=== PATIENT | female | born 1985 | race Caucasian/White ===

== ENCOUNTER 2018-01-12 19:59 | Outpatient (CLI) | payer OTHER, MEDICAID | END 2018-01-12 22:47 | disposition home or self-care (01) | LOC: OBT 19:59 → L-D 20:03 → OBT 22:47 | DX: O26.893 Other specified pregnancy related conditions, third trimester (principal); Z3A.32 32 weeks gestation of pregnancy; M79.604 Pain in right leg | CPT/HCPCS: 76817; 93970 ==

== ENCOUNTER 2018-03-01 01:50 | Inpatient (IN) | payer OTHER, MEDICAID ==
[2018-03-01] MEDS ORDERED: BUTORPHANOL 1 MG INJ IV (03:00)
[2018-03-01] MEDS ORDERED: LIDOCAINE 1% (MPF) 30 ML INJ INJ (03:00)
[2018-03-01] MEDS ORDERED: CARBOPROST 250 MCG INJ IM ×2 (03:00→11:30)
[2018-03-01] MEDS ORDERED: METHYLERGONOVINE 0.2 MG INJ IM ×2 (03:00→11:30)
[2018-03-01] MEDS ORDERED: MISOPROSTOL 200 MCG TAB PR ×2 (03:00→11:30)
[2018-03-01] MEDS ORDERED: OXYTOCIN 30 UNITS/LR 500 ML IV ×2 (03:00→11:30)
[2018-03-01] MEDS ORDERED: IBUPROFEN 600 MG TAB PO (03:00)
[2018-03-01] MEDS: LACTATED RINGER'S 1,000 ML IV* ×4 (03:25→19:08)
[2018-03-01 03:42] LABS: ADD MAN DIFF? NO
[2018-03-01 04:04] LABS: ABNORMAL IP MESSAGE 1; BASOPHILS % 0.4 % (0.0-2.0); EOSINOPHILS # 0.1 10^3/ul (0.0-0.5); EOSINOPHILS % 0.5 % (0.0-7.0); HEMATOCRIT 39.2 % (37.0-47.0); LYMPHOCYTES # 2.2 10^3/ul (0.8-2.9); LYMPHOCYTES % 20.2 % (15.0-51.0); MEAN CORPUSCULAR HEMOGLOBIN 29.3 pg (29.0-33.0); MEAN CORPUSCULAR HGB CONC 33.2 g/dl (32.0-37.0); MEAN CORPUSCULAR VOLUME 88.5 fl (82.0-101.0); MEAN PLATELET VOLUME 13.5 fl (7.4-10.4); MONOCYTE # 0.9 10^3/ul (0.3-0.9); MONOCYTES % 8.5 % (0.0-11.0); NEUTROPHIL # 7.4 10^3/ul (1.6-7.5); NEUTROPHILS % 69.6 % (39.0-77.0); PLATELET COUNT 107 10^3/UL (140-415); RED BLOOD COUNT 4.43 10^6/ul (4.20-5.40); RED CELL DISTRIBUTION WIDTH 14.6 % (11.5-14.5)
[2018-03-01 04:04] LABS: WHITE BLOOD COUNT 10.7 10^3/ul (4.8-10.8)
[2018-03-01 04:05] LABS: INR 0.93; PROTIME 12.6 Sec (11.9-14.9)
[2018-03-01 04:06] LABS: PARTIAL THROMBOPLASTIN TIME 26.8 Sec (25.0-35.0)
[2018-03-01] MEDS: LACTATED RINGER'S 1,000 ML IV ×2 (04:09→18:19)
[2018-03-01 04:28] LABS: POSITIVE DIFF @See below
[2018-03-01 04:36] LABS: HEPATITIS B SURFACE ANTIGEN NEGATIVE (NEGATIVE)
[2018-03-01] MEDS ORDERED: FENTAnyl 2MCG/ML-ROPIV 0.2% 100 ML (04:47)
[2018-03-01] MEDS ORDERED: NALOXONE (0.4 MG/ML) INJ IV (05:00)
[2018-03-01] MEDS ORDERED: FENTAnyl 2MCG/ML-ROPIV 0.2% 100 ML BAG EPI (05:00)
[2018-03-01] MEDS: OXYTOCIN 30 UNITS/LR 500 ML IV ×4 (05:11→12:57)
[2018-03-01] MEDS ORDERED: DIBUCAINE 1% 30 GM OINT PR (11:30)
[2018-03-01] MEDS ORDERED: ACETAMINOPHEN 325 MG TAB PO (11:30)
[2018-03-01] MEDS ORDERED: WITCH HAZEL/GLYCERIN PAD PR (11:30)
[2018-03-01] MEDS ORDERED: HYDROCODONE/APAP (5/325) TAB PO (11:30)
[2018-03-01] MEDS: IBUPROFEN 600 MG TAB PO ×3 (12:19→23:40)
[2018-03-01] MEDS: LANOLIN 7 GM TUBE TOP (12:19)
[2018-03-01] MEDS: BENZOCAINE 20% 56 ML SPRAY TOP (12:20)
[2018-03-01 17:22] LABS: RAPID PLASMA REAGIN NONREACTIVE (NR)
[2018-03-01] MEDS: SENNA/DOCUSATE NA (8.6MG/50MG) TAB PO (22:08)
[2018-03-02] MEDS: LACTATED RINGER'S 1,000 ML IV* ×2 (03:08→11:08)
[2018-03-02] MEDS: IBUPROFEN 600 MG TAB PO ×3 (05:21→18:00)
[2018-03-02 07:16] LABS: ADD MAN DIFF? NO
[2018-03-02 07:20] LABS: BASOPHILS % 0.3 % (0.0-2.0); EOSINOPHILS # 0.1 10^3/ul (0.0-0.5); EOSINOPHILS % 0.8 % (0.0-7.0); HEMATOCRIT 39.8 % (37.0-47.0); HEMOGLOBIN 13.1 g/dl (12.0-16.0); LYMPHOCYTES # 2.3 10^3/ul (0.8-2.9); LYMPHOCYTES % 23.7 % (15.0-51.0); MEAN CORPUSCULAR HEMOGLOBIN 29.4 pg (29.0-33.0); MEAN CORPUSCULAR HGB CONC 32.9 g/dl (32.0-37.0); MEAN CORPUSCULAR VOLUME 89.2 fl (82.0-101.0); MEAN PLATELET VOLUME 12.9 fl (7.4-10.4); MONOCYTE # 0.7 10^3/ul (0.3-0.9); MONOCYTES % 7.2 % (0.0-11.0); NEUTROPHIL # 6.4 10^3/ul (1.6-7.5); NEUTROPHILS % 67.5 % (39.0-77.0); PLATELET COUNT 108 10^3/UL (140-415); RED BLOOD COUNT 4.46 10^6/ul (4.20-5.40); RED CELL DISTRIBUTION WIDTH 14.7 % (11.5-14.5)
[2018-03-02 07:20] LABS: WHITE BLOOD COUNT 9.5 10^3/ul (4.8-10.8)
[2018-03-02] MEDS: SENNA/DOCUSATE NA (8.6MG/50MG) TAB PO ×2 (09:43→20:43)
[2018-03-03] MEDS: IBUPROFEN 600 MG TAB PO ×3 (06:16→12:00)
[2018-03-03] MEDS: SENNA/DOCUSATE NA (8.6MG/50MG) TAB PO (09:16)
[2018-03-03] MEDS: DIPHTH/TET/ACEL PERTUSS (ADULT) 0.5 ML VIAL IM* (09:57)
== END 2018-03-03 17:10 | disposition home or self-care (01) | DRG 775 ==
LOC: OBT 01:50 → L-D 01:50 → OBT 03:00 → L-D 03:00 → PP1 11:31
PROVIDERS: Obstetrics & Gynecology
PROC: 10E0XZZ Delivery of Products of Conception, External Approach (ICD-10-PCS; principal; 2018-03-01)
PROC: 0UQGXZZ Repair Vagina, External Approach (ICD-10-PCS; 2018-03-01)
DX: O71.4 Obstetric high vaginal laceration alone (principal); Z37.0 Single live birth; Z3A.39 39 weeks gestation of pregnancy
CPT/HCPCS: 62319; 85025; 85610; 85730; 86592; 86850; 86900; 86901; 87340; 90715; 99464